=== PATIENT | female | born 1995 | race Caucasian/White ===

== ENCOUNTER 2021-07-21 23:51 | Inpatient (IN) ==
[2021-07-22] MEDS ORDERED: BUTORPHANOL 2 MG/ML VIAL IV PRN (00:05)
[2021-07-22] MEDS ORDERED: ONDANSETRON 4 MG/2 ML VIAL IV PRN (00:05)
[2021-07-22] MEDS ORDERED: MEPERIDINE 50 MG/1 ML VIAL IV PRN (00:05)
[2021-07-22] MEDS: LACTATED RINGERS 1,000 ML IV SCH ×3 (01:24→15:55)
[2021-07-22 01:51] LABS: Basophils % 0.2 % (0.0-0.8); Eosinophils # 0.1 10*3/uL (0.0-0.87); Hematocrit 38.9 VOL% (35.7-47.0); Hemoglobin 12.3 GM/DL (12.0-16.0); Immature Granulocytes % 0.8 %; Lymphocytes % 23.8 % (21.3-54.2); Mean Corpuscular HGB Conc 31.6 GM/DL (32-36); Mean Corpuscular Volume 97.5 FL (87-102); Mean Platelet Volume 11.1 FL (9.6-12.0); Monocytes % 6.2 % (1.7-12.7); Platelet Count 281 T/CUMM (130-400); Red Blood Count 3.99 MC/CUMM (3.8-5.5); Red Cell Distribution Width 13.4 % (9.3-17.3); White Blood Count 12.4 T/CUMM (4-12)
[2021-07-22 02:13] LABS: Albumin 2.6 G/DL (3.4-5.0); Bilirubin,Total 0.5 MG/DL (0.20-1.00); Calcium 9.6 MG/DL (8.5-10.1); Osmolality,Calculated 272.8 MOS/KG (273-304); Potassium 3.9 MMOL/L (3.5-5.1); Total Protein 7.1 G/DL (6.4-8.2)
[2021-07-22] MEDS ORDERED: OXYTOCIN/LR 20 UNIT/1,000 ML BAG IV SCH (12:00)
[2021-07-22] MEDS ORDERED: CITRIC ACID/SODIUM CITRATE 30 ML UDCUP PO ONE (14:45)
[2021-07-22] MEDS ORDERED: hydrOXYzine HCL 25 MG/1 ML VIAL IM PRN (14:45)
[2021-07-22] MEDS ORDERED: ONDANSETRON 4 MG/2 ML VIAL IV ONE (14:45)
[2021-07-22] MEDS ORDERED: NALOXONE 0.4 MG/ML VIAL IV PRN (14:45)
[2021-07-22] MEDS ORDERED: ePHEDrine 50 MG/ML VIAL IV PRN (14:45)
[2021-07-22] MEDS ORDERED: LACTATED RINGERS 1,000 ML IV ONE (14:45)
[2021-07-22] MEDS ORDERED: PROMETHAZINE 25 MG/1 ML VIAL IM ONE (14:45)
[2021-07-22] MEDS ORDERED: diphenhydrAMINE 50 MG/1 ML VIAL IV PRN ×2 (14:45)
[2021-07-22] MEDS ORDERED: FAMOTIDINE 20 MG/2 ML VIAL IV ONE (14:45)
[2021-07-22] MEDS ORDERED: fentaNYL 2 MCG/ROPIV 0.2% EPID 100 ML EPIDURAL SCH (15:00)
[2021-07-23] MEDS ORDERED: OXYTOCIN/LR 20 UNIT/1,000 ML BAG IV SCH (00:30)
[2021-07-23] MEDS: LACTATED RINGERS 1,000 ML IV SCH (00:38)
[2021-07-23] MEDS ORDERED: LACTATED RINGERS 1,000 ML IV SCH ×2 (08:30→17:00)
[2021-07-23] MEDS ORDERED: INFLUENZA VIRUS VACCINE 0.5 ML SYRINGE IM ONE (09:00)
[2021-07-23] MEDS ORDERED: CITRIC ACID/SODIUM CITRATE 30 ML UDCUP ONE (12:01)
[2021-07-23] MEDS ORDERED: FAMOTIDINE 20 MG/2 ML VIAL IV ONE (12:02)
[2021-07-23] MEDS ORDERED: ceFAZolin 3,000 MG in SYRINGE 1 EACH IV ONE (15:01)
[2021-07-23] MEDS ORDERED: OXYTOCIN/LR 30 UNIT/1,000 ML BAG IV ONE (15:02)
[2021-07-23] MEDS ORDERED: OXYTOCIN 10 UNIT/ML VIAL IM ONE (15:02)
[2021-07-23] MEDS ORDERED: LIDOCAINE MPF 2% /EPI 20 ML VIAL ONE (15:28)
[2021-07-23] MEDS ORDERED: SODIUM CHLORIDE 0.9% 100 ML IV ONE (15:52)
[2021-07-23] MEDS ORDERED: PHENYLEPHRINE 10 MG/1 ML VIAL IV ONE (15:52)
[2021-07-23] MEDS ORDERED: ACETAMINOPHEN INJ 1,000 MG/100 ML VIAL IV ONE (16:21)
[2021-07-23] MEDS ORDERED: DEXAMETHASONE 4 MG/1 ML VIAL ONE (16:21)
[2021-07-23] MEDS ORDERED: ONDANSETRON 4 MG/2 ML VIAL ONE (16:21)
[2021-07-23] MEDS ORDERED: KETOROLAC 30 MG/1 ML VIAL ONE (16:21)
[2021-07-23] MEDS ORDERED: propofoL 200 MG/20 ML VIAL IV ONE (16:21)
[2021-07-23 16:23] LABS: Cord Arterial Blood HCO3 28.2 MMOL/L
[2021-07-23 16:27] LABS: Cord Venous Blood HCO3 25.4 MMOL/L; Cord Venous Blood PCO2 44.9 MMHG; Cord Venous Blood PO2 27.3 MMHG
[2021-07-23] MEDS ORDERED: ONDANSETRON 4 MG/2 ML VIAL IV PRN (16:39)
[2021-07-23] MEDS ORDERED: ACETAMINOPHEN 325 MG TABLET PO PRN (16:39)
[2021-07-23] MEDS ORDERED: SIMETHICONE CHEW 80 MG TABLET PO PRN (16:39)
[2021-07-23] MEDS ORDERED: OXYTOCIN/LR 20 UNIT/1,000 ML BAG IV ONE (16:39)
[2021-07-23] MEDS ORDERED: RHO(D) IMMUNE GLOBULIN 300 MCG SYRINGE IM ONE (16:39)
[2021-07-23] MEDS: FUROSEMIDE 40 MG/4 ML VIAL IV SCH ×2 (17:56→23:13)
[2021-07-23] MEDS: DOCUSATE SODIUM 100 MG CAPSULE PO SCH (22:39)
[2021-07-23] MEDS: ACETAMINOPHEN 500 MG TABLET PO SCH (22:55)
[2021-07-23] MEDS: KETOROLAC 30 MG/1 ML VIAL IV SCH (22:55)
[2021-07-24] MEDS: KETOROLAC 30 MG/1 ML VIAL IV SCH ×2 (04:25→09:52)
[2021-07-24] MEDS: ACETAMINOPHEN 500 MG TABLET PO SCH ×2 (04:30→09:30)
[2021-07-24 06:18] LABS: Basophils % 0.1 % (0.0-0.8); Eosinophils % 0.1 % (0.00-10.9); Hematocrit 30.2 VOL% (35.7-47.0); Immature Granulocytes % 0.7 %; Immature Granulocytes Absolute 0.11 #; Lymphocytes # 1.9 10*3/uL (1.4-4.0); Lymphocytes % 11.5 % (21.3-54.2); Mean Corpuscular HGB Conc 33.1 GM/DL (32-36); Mean Corpuscular Volume 95.9 FL (87-102); Mean Platelet Volume 10.3 FL (9.6-12.0); Monocytes % 4.8 % (1.7-12.7); Neutrophils % 82.8 % (38.7-73.9); Platelet Count 227 T/CUMM (130-400); Red Blood Count 3.15 MC/CUMM (3.8-5.5); Red Cell Distribution Width 13.3 % (9.3-17.3); White Blood Count 16.6 T/CUMM (4-12)
[2021-07-24] MEDS: FUROSEMIDE 40 MG/4 ML VIAL IV SCH (06:35)
[2021-07-24] MEDS: MULTIVITAMIN (PRENATAL) TABLET PO SCH ×2 (07:58→09:05)
[2021-07-24] MEDS: DOCUSATE SODIUM 100 MG CAPSULE PO SCH ×3 (07:58→21:31)
[2021-07-24] MEDS: METOCLOPRAMIDE 10 MG TABLET PO SCH ×2 (07:58→16:20)
[2021-07-24] MEDS: MAGNESIUM HYDROXIDE SUSP 30 ML UDCUP PO PRN ×2 (07:59→21:31)
[2021-07-24] MEDS ORDERED: FUROSEMIDE 40 MG/4 ML VIAL IV SCH (08:00)
[2021-07-24] MEDS: FERROUS SULFATE 325 MG TABLET PO SCH ×2 (09:31→21:31)
[2021-07-24] MEDS: IBUPROFEN 800 MG TABLET PO PRN (21:28)
[2021-07-25] MEDS: IBUPROFEN 800 MG TABLET PO PRN (04:25)
[2021-07-25] MEDS: METOCLOPRAMIDE 10 MG TABLET PO SCH ×2 (04:39→08:43)
[2021-07-25 05:13] LABS: Basophils % 0.2 % (0.0-0.8); Eosinophils # 0.2 10*3/uL (0.0-0.87); Eosinophils % 1.1 % (0.00-10.9); Hematocrit 32.5 VOL% (35.7-47.0); Hemoglobin 10.3 GM/DL (12.0-16.0); Immature Granulocytes % 0.7 %; Lymphocytes % 27.5 % (21.3-54.2); Mean Corpuscular HGB Conc 31.7 GM/DL (32-36); Mean Corpuscular Volume 96.7 FL (87-102); Mean Platelet Volume 10.1 FL (9.6-12.0); Monocytes % 6.1 % (1.7-12.7); Neutrophils % 64.4 % (38.7-73.9); Platelet Count 259 T/CUMM (130-400); Red Blood Count 3.36 MC/CUMM (3.8-5.5); Red Cell Distribution Width 13.7 % (9.3-17.3); White Blood Count 14.5 T/CUMM (4-12)
[2021-07-25 05:55] LABS: Lymphocytes 30 % (20-55); Platelet Estimate Adequate; Segmented Neutrophils 62 % (50-85); Total Cells Counted 100
[2021-07-25 05:56] LABS: Anisocytosis Slight; Hypochromasia Slight
[2021-07-25] MEDS: DOCUSATE SODIUM 100 MG CAPSULE PO SCH (08:43)
[2021-07-25] MEDS: FERROUS SULFATE 325 MG TABLET PO SCH (08:43)
[2021-07-25] MEDS: MULTIVITAMIN (PRENATAL) TABLET PO SCH (08:43)
[2021-07-25] MEDS: MAGNESIUM HYDROXIDE SUSP 30 ML UDCUP PO PRN (08:44)
[2021-07-25 09:10] VITALS: BP 118/64
[2021-07-25] MEDS ORDERED: DIPH/TET/ACEL PERT BOOSTER VACCINE 0.5 ML VIAL IM ONE (11:48)
[2021-07-25] MEDS ORDERED: INFLUENZA VIRUS VACCINE 0.5 ML SYRINGE IM ONE (11:49)
[2021-07-25] MEDS ORDERED: MEASLES/MUMPS/RUBELLA VACCINE 0.5 ML VIAL SUBCUT ONE (11:49)
== END 2021-07-25 12:55 | disposition home or self-care (01) | DRG 788 ==
LOC: N.LD 23:51 → N.OB 07-23 21:24
PROVIDERS: ADMIT Obstetrics & Gynecology; ATTEND Obstetrics & Gynecology
PROC: LDCSECT (ICD-10-PCS; 2021-07-23 15:25)